=== PATIENT | female | born 1935 | race Caucasian/White ===

== ENCOUNTER → 2016-07-13 | Outpatient (CLI) | payer MEDICARE, OTHER ==
[~2016-07-13] MED LIST: ALPR0.5T78 PO; BENA1TAB71 PO; BUSP15TA37 PO; CYCL5TAB PO; GLYB1TAB3 PO
== END ==
LOC: WC.BC 11:12
DX: Z12.31 Encounter for screening mammogram for malignant neoplasm of breast (principal); C50.911 Malignant neoplasm of unspecified site of right female breast; N64.59 Other signs and symptoms in breast; N64.89 Other specified disorders of breast; Z08 Encounter for follow-up examination after completed treatment for malignant neoplasm
CPT/HCPCS: 77063; G0202